=== PATIENT | male | born 1990 | race American Indian/Alaskan Native ===

== ENCOUNTER 2019-09-18 18:25 | Emergency (ER) | payer SELFPAY ==
--- NOTE | 2019-09-18 19:15 | Event Note ---
ED Screening Note Date of service: 09/18/19 Time: 19:11 ED Screening Note: 29 y o male presents cc of abdominal pain x ysterday with an episode of diarhea and back pain This initial assessment/diagnostic orders/clinical plan/treatment(s) is/are subject to change based on patients health status, clinical progression and re- assessment by fellow clinical providers in the ED. Further treatment and workup at subsequent clinical providers discretion. Patient/guardian urged not to elope from the ED as their condition may be serious if not clinically assessed and managed. Initial orders include: labs ua
[2019-09-18 19:23] VITALS: BP 127/79
[2019-09-18] MEDS ORDERED: ONDANSETRON 4 MG ODT TAB PO ONE (19:54)
[2019-09-18] MEDS ORDERED: ONDANSETRON 4 MG ODT TAB ONE (19:54)
--- NOTE | 2019-09-18 19:59 | Cat Scan Report ---
CT ABDOMEN AND PELVIS WITHOUT IV CONTRAST INDICATION: MAIN: Abdominal Pain all over with the feeling of having gas. COMPARISON: None available. TECHNIQUE: All CT scans at this facility use dose modulation, automated exposure control, iterative reconstructi on or weight based dosing, when appropriate, to reduce radiation dose to as low as reasonably achieva ble. FINDINGS: Lung Bases: No significant abnormality. Skeletal System: No acute abnormality. ABDOMEN: Liver: No significant abnormality. Gallbladder: No significant abnormality. Bile Ducts: No significant abnormality. Pancreas: No significant abnormality. Spleen: No significant abnormality. Adrenals: No significant abnormality. Right Kidney: No significant abnormality. Left Kidney: No significant abnormality. Upper GI tract: Stomach is mildly distended. Duodenum is collapsed. Small bowel is diffusely dilated with fluid. Lymph Nodes: No significant adenopathy. Aorta: No significant abnormality. Additional Findings: No significant abnormality. PELVIS: Colon: The colon is diffusely distended with air-fluid levels. Urinary Bladder and Distal Ureters: No significant abnormality. Appendix: Not visualized Lymph Nodes: No significant adenopathy. Additional Findings: None. IMPRESSION: 1. Small bowel and colon are diffusely distended with fluid. I do not see a transition point. This f indings could be due to enterocolitis. There is fecal material in the distal rectum. Mother could be a distal fecal impaction, the rectum is not significantly dilated. Interval follow-up is recommended. 2. Incidental findings, as above. Signer Name: Valentin Montanez MD Signed: 09/18/2019 7:55 PM Workstation Name: [id number]
[2019-09-18] MEDS ORDERED: DICYCLOMINE 20 MG/2 ML INJ IM ONE (20:06)
[2019-09-18] MEDS ORDERED: FLEET ENEMA PR ONE (20:06)
[2019-09-18 20:17] LABS: Basophils % (Auto) 0.1 % (0.0-1.8); Eosinophils % (Auto) 0.3 % (0.0-4.3); Hemoglobin 19.4 gm/dl (11.8-15.2); Lymphocytes # (Auto) 1.5 K/mm3 (1.2-5.4); Lymphocytes % (Auto) 11.1 % (13.4-35.0); Mean Corpuscular HGB Conc 35 % (32-34); Mean Corpuscular Volume 105 fl (84-94); Monocytes # (Auto) 1.6 K/mm3 (0.0-0.8); Platelet Count 221 K/mm3 (140-440); Red Blood Count 5.33 M/mm3 (3.65-5.03); Red Cell Distribution Width 13.4 % (13.2-15.2)
[2019-09-18 20:21] LABS: Alanine Aminotransferase 30 units/L (7-56); Albumin 5.5 g/dL (3.9-5); BUN/Creatinine Ratio 8; Blood Urea Nitrogen 9 mg/dL (9-20); Calcium 10.3 mg/dL (8.4-10.2); Hemolysis Index 41
[2019-09-18] MEDS ORDERED: SODIUM CHLORIDE 0.9% 1000 ML IV SOLN IV ONE (21:11)
[2019-09-18] MEDS ORDERED: PIPERACIL/TAZOBACTA 4.5/NS 100 4.5 GM/100 ML VIAL IV ONE (21:11)
--- NOTE | 2019-09-18 21:17 | Emergency Department Report ---
ED Abdominal Pain HPI - General Chief Complaint: Abdominal Pain Stated Complaint: ABD PAIN/CHEST PAIN Time Seen by Provider: 09/18/19 19:52 Source: patient Mode of arrival: Ambulatory Limitations: No Limitations - History of Present Illness Initial Comments: Mr. Singleton is s 29 y/o aam with nmh who presents for abd pain generalized with diarrhea x 2 days. States symptoms started after eating food from [employer]. there is no fever or chills, no n/v. there is diarrhea and 7/10 abd pain and spasms. pain radiates to epigastric region and is relieved by belching. States heart burn feeling. pt is tolerating po intake. states he feels bloated and constipated. MD Complaint: abdominal pain Onset/Timin -: Gradual, days(s) Location: diffuse Radiation: epigastric Migration to: epigastric Severity: moderate Severity scale (0 -10): 4 Quality: cramping, other (acid taste ) Consistency: constant Improves With: nothing Worsens With: eating Context: possible food poisoning Associated Symptoms: diarrhea - Related Data Previous Rx's Medication Instructions Recorded Last Taken Type Ciprofloxacin HCl [Ciprofloxacin 500 mg PO Q12HR 7 Days #14 tab 09/18/19 Unknown Rx TAB] Dicyclomine [Bentyl] 10 mg PO QID PRN #30 capsule 09/18/19 Unknown Rx Polyethylene Glycol 3350 [Miralax 17 gm PO BID PRN #14 packet 09/18/19 Unknown Rx 3350] metroNIDAZOLE [Flagyl] 500 mg PO BID 7 Days #14 tab 09/18/19 Unknown Rx Allergies Allergy/AdvReac Type Severity Reaction Status Date / Time No Known Allergies Allergy Verified 09/18/19 20:26 ED Review of Systems ROS: Stated complaint: ABD PAIN/CHEST PAIN Other details as noted in HPI Constitutional: denies: chills, fever Eyes: denies: eye pain, eye discharge, vision change ENT: denies: ear pain, throat pain Respiratory: denies: cough, shortness of breath, wheezing Cardiovascular: denies: chest pain, palpitations Endocrine: no symptoms reported Gastrointestinal: abdominal pain, diarrhea. denies: melena Genitourinary: denies: urgency, dysuria, hematuria, discharge Musculoskeletal: denies: back pain, joint swelling, arthralgia Skin: denies: rash, lesions Neurological: denies: headache, weakness, paresthesias Psychiatric: denies: anxiety, depression Hematological/Lymphatic: denies: easy bleeding, easy bruising ED Past Medical Hx - Past Medical History Previous Medical History?: No - Surgical History Past Surgical History?: Yes Additional Surgical History: abd surgery as a child for a blockage - Social History Smoking Status: Current Every Day Smoker Substance Use Type: Alcohol - Medications Home Medications: Home Medications Medication Instructions Recorded Confirmed Last Taken Type Ciprofloxacin HCl [Ciprofloxacin 500 mg PO Q12HR 7 Days #14 tab 09/18/19 Unknown Rx TAB] Dicyclomine [Bentyl] 10 mg PO QID PRN #30 capsule 09/18/19 Unknown Rx Polyethylene Glycol 3350 [Miralax 17 gm PO BID PRN #14 packet 09/18/19 Unknown Rx 3350] metroNIDAZOLE [Flagyl] 500 mg PO BID 7 Days #14 tab 09/18/19 Unknown Rx ED Physical Exam - General Limitations: No Limitations General appearance: alert, in no apparent distress - Head Head exam: Present: atraumatic, normocephalic - Eye Eye exam: Present: normal appearance - ENT ENT exam: Present: mucous membranes moist - Neck Neck exam: Present: normal inspection, full ROM. Absent: tenderness - Respiratory Respiratory exam: Present: normal lung sounds bilaterally. Absent: respiratory distress, wheezes, stridor, chest wall tenderness - Cardiovascular Cardiovascular Exam: Present: regular rate, normal rhythm. Absent: systolic murmur, diastolic murmur, rubs, gallop - GI/Abdominal GI/Abdominal exam: Present: distended (firm to tocuhg ), tenderness (LLQ ), hyperactive bowel sounds. Absent: guarding, rebound, rigid, bruit, hernia - Rectal Rectal exam: Present: deferred - Extremities Exam Extremities exam: Present: normal inspection - Back Exam Back exam: Present: normal inspection, full ROM. Absent: tenderness, CVA tenderness (R), CVA tenderness (L) - Neurological Exam Neurological exam: Present: alert, oriented X3, CN II-XII intact, normal gait - Psychiatric Psychiatric exam: Present: normal affect, normal mood - Skin Skin exam: Present: warm, dry, intact, normal color. Absent: rash ED Course Vital Signs 09/18/19 19:21 Temperature 99 F Pulse Rate 100 H Respiratory 16 Rate Blood Pressure 127/79 [Left] O2 Sat by Pulse 100 Oximetry - Reevaluation(s) Reevaluation #1: pt states relief after fleet enema self administered. States large BM soft x 1 with some diarrhea. abd spasms are relieved. labs noted for wbc:15, moderate dehydration. polan: will hydrated , zosyn, pt declines admission as option. Pt states symptoms are much improved, pt is tolerating po intake at this time, there is no n/v , abd soft , nontender, pt does not appear septic or toxic.. 09/18/19 22:26 ED Medical Decision Making - Lab Data Result diagrams: 09/18/19 19:51 09/18/19 20:01 - Radiology Data Radiology results: report reviewed, image reviewed Ordering Physician: MERLINE HORNER Date of Service: 09/18/19 Procedure(s): CT abdomen pelvis wo con Accession Number(s): [id number] cc: MERLINE HORNER CT ABDOMEN AND PELVIS WITHOUT IV CONTRAST INDICATION: MAIN: Abdominal Pain all over with the feeling of having gas. COMPARISON: None available. TECHNIQUE: All CT scans at this facility use dose modulation, automated exposure control, iterative reconstruction or weight based dosing, when appropriate, to reduce radiation dose to as low as reasonably achievable. FINDINGS: Lung Bases: No significant abnormality. Skeletal System: No acute abnormality. ABDOMEN: Liver: No significant abnormality. Gallbladder: No significant abnormality. Bile Ducts: No significant abnormality. Pancreas: No significant abnormality. Spleen: No significant abnormality. Adrenals: No significant abnormality. Right Kidney: No significant abnormality. Left Kidney: No significant abnormality. Upper GI tract: Stomach is mildly distended. Duodenum is collapsed. Small bowel is diffusely dilated with fluid. Lymph Nodes: No significant adenopathy. Aorta: No significant abnormality. Additional Findings: No significant abnormality. PELVIS: Colon: The colon is diffusely distended with air-fluid levels. Urinary Bladder and Distal Ureters: No significant abnormality. Appendix: Not visualized Lymph Nodes: No significant adenopathy. Additional Findings: None. IMPRESSION: 1. Small bowel and colon are diffusely distended with fluid. I do not see a transition point. This findings could be due to enterocolitis. There is fecal material in the distal rectum. Mother could be a distal fecal impaction, the rectum is not significantly dilated. Interval follow-up is recommended. 2. Incidental findings, as above. Signer Name: Valentin Montanez MD Signed: 09/18/2019 7:55 PM Workstation Name: [id number] Transcribed By: SW Dictated By: Valentin Montanez MD Electronically Authenticated By: Valentin Montanez MD Signed Date/Time: 09/18/191954 DD/ 48 TD/TT: - Medical Decision Making pt symptoms are improved, there is no fever or chills no n/v, pt is tolerating po intake, pt appears well and nontoxic. This is most likely dehydration related to diarrhea, plan: miralax, oral hydration, follow up with pcp in 2-3 days. Pt will return to ed if symptoms worsen. pt verbalized agreement and understanding of discharge plan. Critical care attestation.: If time is entered above; I have spent that time in minutes in the direct care of this critically ill patient, excluding procedure time. ED Disposition Clinical Impression: Dehydration, mild Abdominal pain Qualifiers: Abdominal location: left lower quadrant Qualified Code(s): R10.32 - Left lower quadrant pain Gastritis Qualifiers: Gastritis type: unspecified gastritis Chronicity: acute Gastritis bleeding: without bleeding Qualified Code(s): K29.00 - Acute gastritis without bleeding Disposition: DC-01 TO HOME OR SELFCARE Is pt being admited?: No Does the pt Need Aspirin: No Condition: Stable Instructions: Abdominal Pain (ED), Gastritis (ED) Prescriptions: Dicyclomine [Bentyl] 10 mg PO QID PRN #30 capsule PRN Reason: abdominal spasm Ciprofloxacin HCl [Ciprofloxacin TAB] 500 mg PO Q12HR 7 Days #14 tab metroNIDAZOLE [Flagyl] 500 mg PO BID 7 Days #14 tab Polyethylene Glycol 3350 [Miralax 3350] 17 gm PO BID PRN #14 packet PRN Reason: constipation Referrals: [facility] [Provider Group] - 3-5 Days [facility] [Provider Group] - 3-5 Days Forms: Work/School Release Form(ED) Time of Disposition: 23:27
[2019-09-18] MEDS ORDERED: ALUM-MAG HYDROXIDE-SIMETHICONE 200-200-20MG/5ML ORAL LIQD 30 ML PO ONE (21:20)
[2019-09-18] MEDS ORDERED: LIDOCAINE VISCOUS 2% 15 ML ORAL LIQD PO ONE (21:20)
[2019-09-18] MEDS ORDERED: LIDOCAINE VISCOUS 2% 15 ML ORAL LIQD ONE (23:48)
[2019-09-18] MEDS ORDERED: ALUM-MAG HYDROXIDE-SIMETHICONE 200-200-20MG/5ML ORAL LIQD 30 ML ONE (23:48)
[2019-09-18] MEDS ORDERED: ACETAMINOPHEN 500 MG TAB ONE (23:48)
[2019-09-18] MEDS ORDERED: ACETAMINOPHEN 500 MG TAB PO ONE (23:49)
== END 2019-09-18 23:55 | disposition home or self-care (01) ==
LOC: ED 18:25
DX: E86.0 Dehydration (principal); K29.00 Acute gastritis without bleeding; F17.200 Nicotine dependence, unspecified, uncomplicated; Z79.899 Other long term (current) drug therapy
CPT/HCPCS: 36415; 74176; 80053; 83690; 85025; 93005; 93010; 96365; 96372; 99284; J0500; J2543; J7030; Q0162